=== PATIENT | male | born 1965 | race African-American/Black ===

== ENCOUNTER 2024-12-27 19:53 | Inpatient (IN) | payer OTHER ==
[~2024-12-27] VITALS: Ht 180.3 cm; Wt 136.0 kg
[~2024-12-27 19:53] MED LIST: ACYC1TAB
--- NOTE | 2024-12-27 20:21 | ED.PDOC ---
History of present illness HPI Comments 59 year old male came to ER via EMS due to hyperglycemia. Patient has history of hypertension and dyslipidemia. For the past few weeks, he has been feeling generally weak, with episodes of polyuria and polydipsia. Patient has been taking Epson salts for it. He then started feeling progressively weak with weakn ess/ numbness of right upper extremity with dizziness and lightheadedness. Blood sugar taken read "high" Chief Complaint: Hyperglycemia Time Seen by MD: 20:20 Primary Care Provider: none History of present illness: Nurses Notes Allergies: Coded Allergies: NO KNOWN ALLERGIES (Unverified , 11/30/11) Home Meds Reported Medications Acyclovir (Zovirax) 400 Mg Tb 12/18/11 Information Source: Patient Mode of Arrival: EMS Timing: Hours Duration: Since onset Prehospital treatment: None Guild: Shaky, Sweaty Symptoms: Anxious, Shaky, Sweaty Associated signs and symptoms: Other (weakness) Past Medical History PAST MEDICAL HISTORY: High Lipids, HTN Surgical History: Denies all surgeries Family History Family History: Reviewed,noncontributory to illness Social History Smoker: Non-Smoker Alcohol: Occasionally Drugs: Denies Drug Use Lives In: Home Constitutional: reports: fatigue, weakness; denies: chills, diaphoresis, fever, malaise, sweats, others EENTM: denies: blurred vision, double vision, ear bleeding, ear discharge, ear drainage, ear pain, ear ringing, eye pain, eye redness, hearing loss, mouth pain, mouth swelling, nasal discharge, nose bleeding, nose congestion, nose pain, photophobia, tearing, throat pain, throat swelling, voice changes, others Respiratory: denies: cough, hemoptysis, orthopnea, SOB at rest, shortness of breath, SOB with excertion, stridor, wheezing, others Cardiovascular: denies: chest pain, dizzy spells, diaphoresis, Dyspnea on exertion, edema, irregular heart beat, left arm pain, lightheadedness, palpitat ions, PND, syncope, others Gastrointestinal: denies: abdomen distended, abdominal pain, blood streaked bow els, constipated, diarrhea, dysphagia, difficulty swallowing, hematemesis, melena, nausea, poor appetite, poor fluid intake, rectal bleeding, rectal pain, vomiting, others Genitourinary: denies: burning, dysuria, flank pain, frequency, hematuria, incontinence, penile discharge, penile sore, pain, testicle pain, testicle swelling, urgency, others Neurological: denies: dizziness, fainting, headache, left sided numbness, left sided weakness, numbness, paresthesia, pre-existing deficit, right sided numbness, right sided weakness, seizure, speech problems, tingling, tremors, weakness, others Musculoskeletal: denies: back pain, gout, joint pain, joint swelling, muscle pain, muscle stiffness, neck pain, others Integumetry: denies: bruises, change in color, change in hair/nails, dryness, laceration, lesions, lumps, rash, wounds, others Allergic/Immunocompromised: denies: Difficulty Healing, Frequent Infections, Hives, Itching, others Endocrine: reports: excessive thirst, excessive urination; denies: excessive hunger, excessive sweating, flushing, intolerance to cold, intolerance to heat, unexplained weight gain, unexplained weight loss, others Psychiatric: denies: anxiety, bipolar disorder, depression, hopeless, panic disorder, schizophrenia, sleepless, suicidal, others Physical Exam General Appearance: No Apparent Distress, Normal HEENT: Normal ENT Inspection, Pharynx Normal, TMs Normal Neck: Full Range of Motion, Non-Tender, Normal, Normal Inspection Respiratory: Chest Non-Tender, Lungs Clear, No Accessory Muscle Use, No Respiratory Distress, Normal Breath Sounds Cardiovascular: No Edema, No JVD, No Murmur, No Gallop, Normal Peripheral Pulses, Regular Rate/Rhythm Breast Exam: Deferred Gastrointestinal: No Organomegaly, Non Tender, No Pulsatile Mass, Normal Bowel Sounds, Soft Genitalia: Deferred Pelvic: Deferred Rectal: Deferred Extremities: No calf tenderness, Normal capillary refill, Normal inspection, Normal range of motion, Non-tender, No pedal edema Musculoskeletal : Apperance: Normal Neurologic: Alert, 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 Was a procedure done?: No Differential Diagnosis (DM) Differential Diagnosis: Dehydration, DKA, Electrolyte Abnormality, Hyperglycemia, UTI X-Ray, Labs, Meds, VS Vital Signs Date Time Temp Pulse Resp B/P (MAP) Pulse Ox O2 Delivery O2 Flow Rate FiO2 12/27/24 20:37 113 23 95 Room Air* 0 21 12/27/24 20:35 99.0 113 23 109/81 (90) 95 99.0 12/27/24 19:53 99.0 115 24 129/85 (100) 95 99.0 Lab Test 12/27/24 21:27 12/27/24 21:08 12/27/24 20:25 Range/Units Troponin I High Sensitivity 13 11 </=54 ng/L Urine Color Light-yellow Yellow Urine Clarity Clear Clear Urine pH 5.0 5.0-9.0 Urine Specific [place] 1.028 1.001-1.035 Urine Protein Negative Negative Urine Ketones 2+ H Negative Urine Blood Negative Negative /uL Urine Nitrite Negative Negative Urine Bilirubin Negative Negative Urine Urobilinogen Normal Negative mg/dL Urine Leukocyte Esterase Trace Negative /uL Urine RBC 2 0 - 3 /hpf Urine Microscopic WBC 40 H 0-3 /HPF Urine Squamous Epithelial Cells None seen <5 /hpf Urine Bacteria Few H None Seen /hpf Urine Glucose 4+ H Normal mg/dL White Blood Count 5.8 4.4-10.8 10^3/uL Red Blood Count 4.98 4.5-5.90 10^6/uL Hemoglobin 14.3 13.5-17.5 g/dL Hematocrit 43.1 41.0-53.0 % Mean Corpuscular Volume 86.5 80.0-100.0 fL Mean Corpuscular Hemoglobin 28.7 28.0-32.0 pg Mean Corpuscular Hemoglobin Concent 33.1 32.0-36.0 g/dL Red Cell Distribution Width 13.1 11.8-14.3 % Platelet Count 161 140-450 10^3/uL Mean Platelet Volume 9.6 6.9-10.8 fL Neutrophils (%) (Auto) 64.7 37.0-80.0 % Lymphocytes (%) (Auto) 24.1 10.0-50.0 % Monocytes (%) (Auto) 10.4 0.0-12.0 % Eosinophils (%) (Auto) 0.5 0.0-7.0 % Basophils (%) (Auto) 0.3 0.0-2.0 % Neutrophils # (Auto) 3.7 1.6-8.6 10 ^3/uL Lymphocytes # (Auto) 1.4 0.4-5.4 10 ^3/uL Monocytes # (Auto) 0.6 0-1.3 10 ^3/uL Eosinophils # (Auto) 0 0-0.8 10 ^3/uL Basophils # (Auto) 0 0-0.2 10 ^3/uL Nucleated Red Blood Cells 0.3 % Sodium Level 129 L 136-145 mmol/L Potassium Level 3.9 3.5-5.1 mmol/L Chloride Level 94 L 98-107 mmol/L Carbon Dioxide Level 21 20-31 mmol/L Anion Gap 14 5-15 Blood Urea Nitrogen 18 9-23 mg/dL Creatinine 1.74 H 0.700-1.30 mg/dL Glomerular Filtration Rate Calc 45 >90 mL/min BUN/Creatinine Ratio 10.3 10.0-20.0 Serum Glucose 718 *H 74-106 mg/dL Calcium Level 10.2 8.7-10.4 mg/dL Current Medications Medications (Trade) Dose Ordered Sig/[place] Route Start Time Stop Time Status Last Admin Sodium Chloride 2,000 ml @ 1,000 mls/hr Q2H ONCE IV 12/27/24 22:15 12/28/24 00:14 12/27/24 22:18 Ondansetron HCl (Zofran) 4 mg ONCE ONCE IV 12/27/24 22:15 12/27/24 22:16 DC 12/27/24 22:19 Insulin Human Regular (InsuLIN R) 10 units ONCE ONCE IV 12/27/24 22:15 12/27/24 22:16 DC 12/27/24 22:19 Potassium Chloride (Klor-Con Tablet) 40 meq ONCE ONCE PO 12/27/24 22:15 12/27/24 22:16 DC 12/27/24 22:20 CHEST RADIOGRAPH Indication: right arm weakness Technique: Single frontal view of the chest was obtained Comparison: None FINDINGS: Lines and Tubes: None Lungs: No focal consolidation. Pleura: No effusion. No pneumothorax. Cardiomediastinal contours: Unremarkable Bones: No acute osseous abnormality. IMPRESSION: 1. Poor inspiratory effort. EXAM: CT HEAD WITHOUT CONTRAST INDICATION: right arm weakness TECHNIQUE: CT of the head without intravenous contrast. Radiation Dose Information: CT Dose: CTDI volume is 62.04 mGy. Dose-length product is 1098.42 mGy*cm The dose indicators for CT are the volume Computed Tomography (CT) Dose Index (CTDIvol) and the Dose Length Product (DLP), and are measured in units of mGy and mGy-cm, respectively. These indicators are not patient dose, but values generated from the CT scanner acquisition factors. The report includes radiation exposure data for exposures received during this examination. COMPARISON: None FINDINGS: There is no evidence of acute intracranial hemorrhage, extra-axial collection, mass effect, midline shift, herniation or hydrocephalus. The ventricles, sulci and cisterns are age appropriate. The archuleta-white differentiation is intact. Patchy periventricular and subcortical white matter hypoattenuation is nonspecific but may be related to small vessel ischemic disease. The visualized paranasal sinuses and mastoid air cells are clear. The surrounding soft tissues and osseous structures are unremarkable. IMPRESSION: 1. No acute intracranial abnormality. Time of 1ST Reevaluation: 20:16 Reevaluation 1ST: Unchanged Patient Education/Counseling: Diagnosis, Treatment Family Education/Counseling: No Family Present Departure 1 Departure Time of Disposition: 22:48 (Patient with new onset diabetes. We will admit patient for further workup and expert consultation) Impression: Primary Impression: New onset type 2 diabetes mellitus Additional Impression: Generalized weakness Disposition: 09 ADMITTED INPATIENT Admit to: Med Surg Condition: Guarded Critical Care Note Critical Care Time?: Yes (35 min-critical care time only) Critical care comment: hyperglycemia Authorized and Performed by: Alanna Terrazas MD Total critical care time: Approximately 39 minutes Due to a high probability of clinically significant, life threatening deterioration, the patient required my highest level of preparedness to intervene emergently and I personally spent this critical care time directly and personally managing the patient. This critical care time included obtaining a history; examining the patient; pulse oximetry; ordering and review of studies; arranging urgent treatment with development of a management plan; evaluation of patient's response to treatment; frequent reassessment; and, discussions with other providers. This critical care time was performed to assess and manage the high probability of imminent, life-threatening deterioration that could result in multi-organ failure. It was exclusive of separately billable procedures and treating other patients and teaching time. Please see my other sections and the rest of the note for further information on patient assessment and treatment. Stability Stability form required: No Heart Score Heart Score: Heart Score Response (Comments) Value History N/A 0 EKG N/A 0 Age N/A 0 Risk Factors N/A 0 Troponin N/A 0 Total 0 I personally scribed for ALANNA TERRAZAS MD ([facility]) on 12/27/24 at 20:21. Electronically submitted by Donn Posadas ([facility]). I personally scribed for ALANNA TERRAZAS MD ([facility]) on 12/27/24 at 21:01. Electronically submitted by Donn Posadas ([facility]). I personally scribed for ALANNA TERRAZAS MD ([facility]) on 12/27/24 at 22:03. Electronically submitted by Donn Posadas ([facility]). ALANNA TERRAZAS MD December 27, 2024 20:21
[2024-12-27 20:36] LABS: Basophils # (auto) 0 10 ^3/uL (0-0.2); Basophils % (auto) 0.3 % (0.0-2.0); Eosinophils # (auto) 0 10 ^3/uL (0-0.8); Eosinophils % (auto) 0.5 % (0.0-7.0); Hematocrit 43.1 % (41.0-53.0); Hemoglobin 14.3 g/dL (13.5-17.5); Lymphocytes # (auto) 1.4 10 ^3/uL (0.4-5.4); Lymphocytes % (auto) 24.1 % (10.0-50.0); Mean Corpuscular Hemoglobin 28.7 pg (28.0-32.0); Mean Corpuscular Hgb Conc. 33.1 g/dL (32.0-36.0); Mean Corpuscular Volume 86.5 fL (80.0-100.0); Monocytes # (auto) 0.6 10 ^3/uL (0-1.3); Monocytes % (auto) 10.4 % (0.0-12.0); Neutrophils # (auto) 3.7 10 ^3/uL (1.6-8.6); Neutrophils % (auto) 64.7 % (37.0-80.0); Nucleated Red Blood Cells % 0.3 %; Platelet Count (auto) 161 10^3/uL (140-450); Red Blood Cells 4.98 10^6/uL (4.5-5.90); Red Cell Distribution Width 13.1 % (11.8-14.3); White Blood Cell 5.8 10^3/uL (4.4-10.8)
[2024-12-27 20:37] VITALS: PULSE 113; RESP 23; O2SAT 95
[2024-12-27 20:44] LABS: Potassium 3.9 mmol/L (3.5-5.1)
[2024-12-27 20:46] LABS: Anion Gap 14 (5-15); Calcium 10.2 mg/dL (8.7-10.4); Carbon Dioxide 21 mmol/L (20-31)
--- NOTE | 2024-12-27 20:46 | DVH ---
CHEST RADIOGRAPH Indication: right arm weakness Technique: Single frontal view of the chest was obtained Comparison: None FINDINGS: Lines and Tubes: None Lungs: No focal consolidation. Pleura: No effusion. No pneumothorax. Cardiomediastinal contours: Unremarkable Bones: No acute osseous abnormality. IMPRESSION: 1. Poor inspiratory effort.
[2024-12-27 20:49] LABS: Chloride 94 mmol/L (98-107); Sodium 129 mmol/L (136-145)
[2024-12-27 20:51] LABS: BUN/Creatinine Ratio 10.3 (10.0-20.0); Blood Urea Nitrogen 18 mg/dL (9-23)
[2024-12-27 21:01] LABS: Glucose 718 mg/dL (74-106)
[2024-12-27 21:25] LABS: Urine Bacteria FEW /hpf (None Seen); Urine Blood Negative /uL (Negative); Urine Clarity Clear (Clear); Urine Color Light-Yellow (Yellow); Urine Protein, UAD Negative (Negative); Urine Specific Gravity 1.028 (1.001-1.035); Urine Squamous Epithelial Cell None Seen /hpf (<5); Urine Urobilinogen Normal (Negative); Urine WBC 40 /HPF (0-3)
--- NOTE | 2024-12-27 21:32 | DVH ---
EXAM: CT HEAD WITHOUT CONTRAST INDICATION: right arm weakness TECHNIQUE: CT of the head without intravenous contrast. Radiation Dose Information: CT Dose: CTDI volume is 62.04 mGy. Dose-length product is 1098.42 mGy*cm The dose indicators for CT are the volume Computed Tomography (CT) Dose Index (CTDIvol) and the Dose Length Product (DLP), and are measured in units of mGy and mGy-cm, respectively. These indicators are not patient dose, but values generated from the CT scanner acquisition factors. The report includes radiation exposure data for exposures received during this examination. COMPARISON: None FINDINGS: There is no evidence of acute intracranial hemorrhage, extra-axial collection, mass effect, midline s hift, herniation or hydrocephalus. The ventricles, sulci and cisterns are age appropriate. The archuleta-white differentiation is intact. Patchy periventricular and subcortical white matter hypoattenuation is nonspecific but may be related to small vessel ischemic disease. The visualized paranasal sinuses and mastoid air cells are clear. The surrounding soft tissues and osseous structures are unremarkable. IMPRESSION: 1. No acute intracranial abnormality.
[2024-12-27] MEDS: SODIUM CHLORIDE 0.9% 2,000 ML IV ONE (22:18)
[2024-12-27] MEDS: InsuLIN REG 1unit/0.01ml Soln (100units/ml) IV ONE (22:19)
[2024-12-27] MEDS: ONDANSETRON HCL 4 MG/2 ML VIAL IV ONE (22:19)
[2024-12-27] MEDS: POTASSIUM CHL 20 Meq TABLET PO ONE (22:20)
[2024-12-28] MEDS ORDERED: DEXTROSE (50%) 50ML SYRG IV PRN (00:30)
[2024-12-28] MEDS ORDERED: hydrALAZINE HCL 20 MG/ML VL IV PRN (00:30)
[2024-12-28] MEDS ORDERED: ACETAMINOPHEN 325 MG TAB PO PRN (00:30)
[2024-12-28] MEDS ORDERED: HYDROcodone-ACET 5/325MG TAB PO PRN (00:30)
[2024-12-28] MEDS ORDERED: ONDANSETRON HCL 4 MG/2 ML VIAL IV PRN (00:30)
[2024-12-28] MEDS ORDERED: DOCUSATE SOD 100 MG CAP PO PRN (00:30)
[2024-12-28] MEDS: SODIUM CHLORIDE 0.9% 1,000 ML IV SCH ×2 (00:46→18:32)
[2024-12-28] MEDS: ACCU-CHEK COMFORT CURVE STRIP VI SCH (04:15)
[2024-12-28 04:16] LABS: Basophils # (auto) 0 10 ^3/uL (0-0.2); Basophils % (auto) 0.4 % (0.0-2.0); Eosinophils # (auto) 0.1 10 ^3/uL (0-0.8); Eosinophils % (auto) 1.4 % (0.0-7.0); Hematocrit 40.8 % (41.0-53.0); Hemoglobin 13.6 g/dL (13.5-17.5); Lymphocytes # (auto) 1.7 10 ^3/uL (0.4-5.4); Mean Corpuscular Hemoglobin 28.9 pg (28.0-32.0); Mean Corpuscular Hgb Conc. 33.3 g/dL (32.0-36.0); Mean Corpuscular Volume 86.8 fL (80.0-100.0); Monocytes # (auto) 0.5 10 ^3/uL (0-1.3); Monocytes % (auto) 8.4 % (0.0-12.0); Neutrophils # (auto) 3.2 10 ^3/uL (1.6-8.6); Neutrophils % (auto) 58.8 % (37.0-80.0); Nucleated Red Blood Cells % 0.4 %; Platelet Count (auto) 159 10^3/uL (140-450); Red Cell Distribution Width 12.9 % (11.8-14.3); White Blood Cell 5.5 10^3/uL (4.4-10.8)
[2024-12-28] MEDS: InsuLIN REG 1unit/0.01ml Soln (100units/ml) SC SCH (04:19)
[2024-12-28 04:31] LABS: Alanine Aminotransferase 12 U/L (7-40); Albumin 3.8 g/dL (3.2-4.8); Anion Gap 14 (5-15); Aspartate Aminotransferase 13 U/L (13-40); BUN/Creatinine Ratio 12.2 (10.0-20.0); Bilirubin, Total 0.5 mg/dL (0.2-1.0); Blood Urea Nitrogen 15 mg/dL (9-23); Calcium 9.1 mg/dL (8.7-10.4); Carbon Dioxide 22 mmol/L (20-31); Chloride 99 mmol/L (98-107); Potassium 4.2 mmol/L (3.5-5.1)
[2024-12-28 04:38] LABS: Alkaline Phosphatase 126 U/L (46-116); Sodium 135 mmol/L (136-145)
[2024-12-28 04:40] LABS: Glucose 437 mg/dL (74-106)
--- NOTE | 2024-12-28 06:21 | DVHHP2 ---
History of Present Illness Reason for Visit: New onset type 2 diabetes mellitus History of Present Illness The patient is a 59-year-old male with past medical history of hyperlipidemia and hypertension who presented to [facility] ED with complaint of elevated blood sugar. Patient reports for the past 2 weeks has been feeling generalized weakness, with episodes of polyuria and polydipsia, dizziness, lightheadedness, progressively get worse today that prompted this visit. Patient was seen and evaluated in the ED with initial blood sugar taking reads with high, laboratory data shows WBC 5.8, platelets 161, sodium 129, potassium 3.9, BUN 18, creatinine 1.74, glucose 718, troponin 12, blood pressure 109/81, heart rate 104, temperature 99.0 F, O2 saturation 95% on room air. Patient was given regular insulin 10 units IV x1, please see medication orders section in the computer. On my assessment, patient denied chest pain, no headache, no dizziness, no diaphoresis, no shortness of breath, no diarrhea, no nausea, no vomiting, no fever, no chills. Patient was admitted for further evaluation and medical management. Past Medical History High Lipids, HTN Past Surgical History Denies all surgeries Family History Reviewed, noncontributory to the management of this case. Past Social History The patient lives at home, denies smoking, alcohol or illicit drugs abuse. Review of Systems Constitutional: Yes: Weakness, Other (Fatigue); No: Fever, Chills, Sweats, Malaise Eyes: No: Pain, Vision change, Conjunctivae inflammation, Eyelid inflammation, Other, Redness ENT: No: Ear pain, Ear discharge, Nose pain, Nose discharge, Nose congestion, Mouth pain, Mouth swelling, Throat pain, Throat swelling, Other Respiratory: No: Cough, Dry, Shortness of breath, SOB with excertion, Wheezing, Hemoptysis, Pleuritic Pain, Sputum, Wheezing, Other Cardiovascular: Lt Headedness; No: Chest Pain, Palpitations, Orthopnea, Paroxysmal Noc. Dyspnea, Edema, Other Gastrointestinal: Nausea; No: Vomiting, Abdominal Pain, Diarrhea, Constipation, Melena, Hematochezia, Other Genitourinary: No Dysuria, No Frequency, No Incontinence, No Hematuria, No Retention, No Other Musculoskeletal: No: other, neck pain, shoulder pain, arm pain, back pain, hand pain, leg pain, foot pain Skin: No: Rash, Lesions, Jaundice, Bruising, Other Neurological: No: Weakness, Numbness, Incoordination, Change in speech, Confusi on, Seizures, Other Other reports: excessive thirst, excessive urination; denies: excessive hunger, excessive sweating, flushing, intolerance to cold, intolerance to heat, unexplained weight gain, unexplained weight loss, others Allergies: Coded Allergies: NO KNOWN ALLERGIES (Unverified , 11/30/11) Medications Current Medications Medications Dose Ordered Sig/[place] Route Start Time Stop Time Status Last Admin Dose Admin Hydralazine HCl 10 mg Q6HP PRN IV 12/28/24 00:30 Atorvastatin Calcium 20 mg HS PO 12/28/24 22:00 Diagnostic Test (Pha) 1 strip IQ4HR 12/28/24 04:00 12/28/24 04:15 1 STRIP Insulin Human Regular IQ4HR SC 12/28/24 04:00 12/28/24 04:19 20 UNITS Dextrose 50 ml UD PRN IV 12/28/24 00:30 Sodium Chloride 1,000 ml @ 120 mls/hr Q8H20M IV 12/28/24 00:30 12/28/24 00:46 120 MLS/HR Acetaminophen/ Hydrocodone Bitart 1 tab Q4HP PRN PO 12/28/24 00:30 Ondansetron HCl 4 mg Q4HP PRN IV 12/28/24 00:30 Docusate Sodium 100 mg BIDPRN PRN PO 12/28/24 00:30 Acetaminophen 650 mg Q6HP PRN PO 12/28/24 00:30 Exam Vital Signs Vital Signs Date Time Temp Pulse Resp B/P (MAP) Pulse Ox O2 Delivery O2 Flow Rate FiO2 12/28/24 06:00 82 12/28/24 06:00 8 132/86 (101) 95 12/27/24 20:37 Room Air* 0 21 12/27/24 20:35 99.0 99.0 General Appearance: Alert, Oriented X3, Cooperative, No acute distress HEENT: Atraumatic, PERRLA, EOMI, Mucous membr. moist/pink Respiratory: Clear to auscultation, Normal air movement Cardiovascular: Regular rate, Normal S1, Normal S2, No murmurs Abdominal: Normal bowel sounds, Soft, No tenderness, No hepatospenomegaly, No masses Extremities: No clubbing, No cyanosis, No edema, Normal pulses, No tenderness/swelling Skin: No rashes, No breakdown, No significant lesion Neuro: Normal speech, Normal tone, Sensation intact, Cranial nerves 3-12 NL, Reflexes 2+, Other (Generalized weakness) Psych/Mental Status: Mental status NL, Mood NL Labs/Xrays Labs Test 12/28/24 04:48 12/28/24 03:51 12/27/24 23:10 12/27/24 21:08 Range/Units POC Glucose 437 *H 70-106 mg/dl White Blood Count 5.5 4.4-10.8 10^3/uL Red Blood Count 4.70 4.5-5.90 10^6/uL Hemoglobin 13.6 13.5-17.5 g/dL Hematocrit 40.8 L 41.0-53.0 % Mean Corpuscular Volume 86.8 80.0-100.0 fL Mean Corpuscular Hemoglobin 28.9 28.0-32.0 pg Mean Corpuscular Hemoglobin Concent 33.3 32.0-36.0 g/dL Red Cell Distribution Width 12.9 11.8-14.3 % Platelet Count 159 140-450 10^3/uL Mean Platelet Volume 9.5 6.9-10.8 fL Neutrophils (%) (Auto) 58.8 37.0-80.0 % Lymphocytes (%) (Auto) 31.0 10.0-50.0 % Monocytes (%) (Auto) 8.4 0.0-12.0 % Eosinophils (%) (Auto) 1.4 0.0-7.0 % Basophils (%) (Auto) 0.4 0.0-2.0 % Neutrophils # (Auto) 3.2 1.6-8.6 10 ^3/uL Lymphocytes # (Auto) 1.7 0.4-5.4 10 ^3/uL Monocytes # (Auto) 0.5 0-1.3 10 ^3/uL Eosinophils # (Auto) 0.1 0-0.8 10 ^3/uL Basophils # (Auto) 0 0-0.2 10 ^3/uL Nucleated Red Blood Cells 0.4 % Sodium Level 135 #L 136-145 mmol/L Potassium Level 4.2 3.5-5.1 mmol/L Chloride Level 99 98-107 mmol/L Carbon Dioxide Level 22 20-31 mmol/L Anion Gap 14 5-15 Blood Urea Nitrogen 15 9-23 mg/dL Creatinine 1.23 0.700-1.30 mg/dL Glomerular Filtration Rate Calc 68 >90 mL/min BUN/Creatinine Ratio 12.2 10.0-20.0 Serum Glucose 437 #*H 74-106 mg/dL Calcium Level 9.1 8.7-10.4 mg/dL Total Bilirubin 0.5 0.2-1.0 mg/dL Aspartate Amino Transferase (AST) 13 13-40 U/L Alanine Aminotransferase (ALT) 12 7-40 U/L Alkaline Phosphatase 126 H 46-116 U/L Total Protein 7.0 5.7-8.2 g/dL Albumin 3.8 3.2-4.8 g/dL Troponin I High Sensitivity 12 </=54 ng/L Urine Color Light-yellow Yellow Urine Clarity Clear Clear Urine pH 5.0 5.0-9.0 Urine Specific [place] 1.028 1.001-1.035 Urine Protein Negative Negative Urine Ketones 2+ H Negative Urine Blood Negative Negative /uL Urine Nitrite Negative Negative Urine Bilirubin Negative Negative Urine Urobilinogen Normal Negative mg/dL Urine Leukocyte Esterase Trace Negative /uL Urine RBC 2 0 - 3 /hpf Urine Microscopic WBC 40 H 0-3 /HPF Urine Squamous Epithelial Cells None seen <5 /hpf Urine Bacteria Few H None Seen /hpf Urine Glucose 4+ H Normal mg/dL Test 12/27/24 20:25 Range/Units Hemoglobin A1c > 14.0 H <5.7 % A1C PATIENT: DARON STARR ACCT: [id number] UNIT: [id number] : 1965 LOC: ER ROOM / BED: / AGE / SEX: 59 / M ADM STATUS: REG ER SERVICE 02 ORDERING PHYSICIAN: ALANNA ORTIZ MD PROCEDURE(s): HWOCT - HEAD WITHOUT CONTRAST REASON: right arm weakness ORDER NUMBER(s): [id number], ACCESSION NUMBER(s): [id number] EXAM: CT HEAD WITHOUT CONTRAST INDICATION: right arm weakness TECHNIQUE: CT of the head without intravenous contrast. Radiation Dose Information: CT Dose: CTDI volume is 62.04 mGy. Dose-length product is 1098.42 mGy*cm The dose indicators for CT are the volume Computed Tomography (CT) Dose Index (CTDIvol) and the Dose Length Product (DLP), and are measured in units of mGy and mGy-cm, respectively. These indicators are not patient dose, but values generated from the CT scanner acquisition factors. The report includes radiation exposure data for exposures received during this examination. COMPARISON: None FINDINGS: There is no evidence of acute intracranial hemorrhage, extra-axial collection, mass effect, midline shift, herniation or hydrocephalus. The ventricles, sulci and cisterns are age appropriate. The archuleta-white differentiation is intact. Patchy periventricular and subcortical white matter hypoattenuation is nonspecific but may be related to small vessel ischemic disease. The visualized paranasal sinuses and mastoid air cells are clear. The surrounding soft tissues and osseous structures are unremarkable. IMPRESSION: 1. No acute intracranial abnormality. ORDERING PHYSICIAN: ALANNA ORTIZ MD PROCEDURE(s): CXRP - CHEST PORTABLE REASON: right arm weakness ORDER NUMBER(s): [id number], ACCESSION NUMBER(s): [id number] CHEST RADIOGRAPH Indication: right arm weakness Technique: Single frontal view of the chest was obtained Comparison: None FINDINGS: Lines and Tubes: None Lungs: No focal consolidation. Pleura: No effusion. No pneumothorax. Cardiomediastinal contours: Unremarkable Bones: No acute osseous abnormality. IMPRESSION: 1. Poor inspiratory effort. Assessment/Plan Assessment/Plan New onset type 2 diabetes mellitus Acute renal injury Hyponatremia Generalized weakness Type 2 diabetes mellitus with hyperglycemia Plan 1. Admit to telemetry unit 2. Breathing treatment 3. Pain control management 4. Management of fluids and electrolytes 5. Consultation for hospitalist 6. Diagnostic tests chest x-ray 7. DVT prophylaxis-on aspirin 8. Repeat labs CBC, CMP in a.m. 9. Continue with current medical management 10. Treatment plan discussed with patient and RN. Patient verbalized understanding. Plan discussed with: Patient, Other (RN) My Orders Orders - ANGI YADAV DNP Procedure Category Date Status Time Consistent DIET 12/28/24 Transmitted Carb(Ccho)Diabetes Breakfast Hydralazine Injection PHA 12/28/24 In Process (Apresoline Inject 00:30 Atorvastatin (Lipitor) PHA 12/28/24 In Process 22:00 Glucose Blood PHA 12/28/24 In Process (Accu-Chek Comfort 04:00 Insulin R (Human) PHA 12/28/24 In Process (Insulin R) 04:00 Dextrose 50% Syringe PHA 12/28/24 In Process 00:30 Allergies SARAHI 12/28/24 In Process 00:18 Code Status CODE 12/28/24 Transmitted 00:18 Sodium Chloride 0.9% PHA 12/28/24 In Process 00:30 Oxygen Per Hour RT 12/28/24 Transmitted 00:18 Hydrocodone-Acet PHA 12/28/24 In Process 5/325mg Tab ([place] 00:30 Ondansetron Hcl PHA 12/28/24 In Process (Zofran) 00:30 Docusate Sodium PHA 12/28/24 In Process Capsule (Colace 00:30 Complete Blood Count LAB 12/29/24 Verified 04:00 Comprehensive LAB 12/29/24 Verified Metabolic Panel 04:00 Condition: Serious SARAHI 12/28/24 In Process 00:18 Acetaminophen Tablet PHA 12/28/24 In Process (Tylenol Tablet) 00:30 Bedrest With Bathroom SARAHI 12/28/24 In Process Privileg 00:18 Sequential SARAHI 12/28/24 In Process Compression Device * Dietary Consult CONS 12/28/24 Transmitted 00:55 Problem List: (1) New onset type 2 diabetes mellitus (2) Acute renal injury (3) Hyponatremia (4) Generalized weakness (5) Type 2 diabetes mellitus with hyperglycemia Date of Service: Dec 28, 2024 Billing Provider: ANGI YADAV DNP Common Visit Codes: [id number] INP/OBS CARE (HIGH) ANGI YADAV DNP Dec 28, 2024 06:21
[2024-12-28] MEDS ORDERED: MORPHINE SULFATE INJ 2 MG/ml SYRG IV PRN (06:30)
[2024-12-28] MEDS ORDERED: NITROGLYCERIN 0.4 MG SL TAB SL PRN (06:30)
--- NOTE | 2024-12-28 06:47 | ECG ---
[facility] Test Date: 2024-12-27 Test Time: 21:31:06 Pat Name: DARON STARR Department: ED Room: 0281T Gender: M [employer]: : 1965 Requested By: ALANNA ORTIZ Order Number: [id number] Reading MD: Hiram Parker Measurements Intervals [place] Rate: 105 P: 33 MT: 169 QRS: -42 QRSD: 96 T: 10 QT: 326 QTc: 431 Interpretive Statements Sinus tachycardia Multiple ventricular premature complexes Left anterior fascicular block Consider anterior infarct Electronically Signed On 12-28-2024 22:36:00 PDT by Hiram Parker Please click the below link to view image of tracing.
[2024-12-28 09:37] VITALS: BP 121/83; PULSE 94; RESP 16; TEMP 97.6; O2SAT 95
[2024-12-28] MEDS: ASPirin 81 mg TAB PO SCH (11:59)
[2024-12-28 14:00] VITALS: BP 115/81; PULSE 78; RESP 18; TEMP 97.9; O2SAT 95
--- NOTE | 2024-12-28 14:36 | DVHPN2 ---
Subjective Patient denies any symptoms at this time. Reports that his generalized weakness has improved. Reviewed: Care Plan, H&P, Labs, Medications Changes from previous H/P or p: No Changes General: Per HPI Eyes: No Pain, No Vision change, No Conjunctivae inflammation, No Eyelid inflammation, No Other, No Redness ENT: No Ear pain, No Ear discharge, No Nose pain, No Nose discharge, No Nose congestion, No Mouth pain, No Mouth swelling, No Throat pain, No Throat swelling, No Other Cardiovascular: No Chest Pain, No Palpitations, No Orthopnea, No Paroxysmal Noc. Dyspnea, No Edema; Lt Headedness; No Other Respiratory: No Cough, No Dry, No Shortness of breath, No SOB with excertion, No Wheezing, No Hemoptysis, No Pleuritic Pain, No Sputum, No Other Gastrointestinal: Nausea; No Vomiting, No Abdominal Pain, No Diarrhea, No Constipation, No Melena, No Hematochezia, No Other Genitourinary: No Dysuria, No Frequency, No Incontinence, No Hematuria, No Retention, No Other Musculoskeletal: No other, No neck pain, No shoulder pain, No arm pain, No back pain, No hand pain, No leg pain, No foot pain Skin: No Rash, No Lesions, No Jaundice, No Bruising, No Other Objective Vitals Vital Signs Date Time Temp Pulse Resp B/P (MAP) Pulse Ox O2 Delivery O2 Flow Rate FiO2 12/28/24 14:00 97.9 78 18 115/81 (92) 95 97.9 12/28/24 09:35 Room Air* 0 21 Intake/Output Intake and Output 12/28/24 07:00 Intake Total 2748 ml Balance 2748 ml Intake IV Total 2748 ml General Appearance: Alert, Oriented X3, Cooperative, No acute distress, Other (Obese) HEENT: Atraumatic, PERRLA Cardiovascular: Normal S1, Normal S2 Abdomen: Normal bowel sounds, Soft, No tenderness, No hepatospenomegaly Musculoskeletal: Normal sensory function, Normal motor function Skin: Dry, Intact Psych/Mental Status: Mental status NL, Mood NL Medications Current Medications Medications Dose Ordered Sig/[place] Route Start Time Stop Time Status Last Admin Dose Admin Hydralazine HCl 10 mg Q6HP PRN IV 12/28/24 00:30 Atorvastatin Calcium 20 mg HS PO 12/28/24 22:00 Diagnostic Test (Pha) 1 strip IQ4HR 12/28/24 04:00 12/28/24 11:59 1 STRIP Insulin Human Regular IQ4HR SC 12/28/24 04:00 12/28/24 12:01 20 UNITS Dextrose 50 ml UD PRN IV 12/28/24 00:30 Acetaminophen/ Hydrocodone Bitart 1 tab Q4HP PRN PO 12/28/24 00:30 Ondansetron HCl 4 mg Q4HP PRN IV 12/28/24 00:30 Docusate Sodium 100 mg BIDPRN PRN PO 12/28/24 00:30 Acetaminophen 650 mg Q6HP PRN PO 12/28/24 00:30 Nitroglycerin 0.4 mg Q5MINP PRN SL 12/28/24 06:30 Morphine Sulfate 2 mg Q30M PRN IV 12/28/24 06:30 Aspirin 81 mg DAILY PO 12/28/24 10:00 12/28/24 11:59 81 MG Sodium Chloride 1,000 ml @ 100 mls/hr Q10H IV 12/28/24 14:00 UNV Metformin HCl 500 mg BIDWM PO 12/28/24 18:00 UNV Laboratory Results Laboratory Tests 12/28/24 03:51 Chemistry Test 12/27/24 20:25 12/28/24 03:51 Calcium Level 10.2 mg/dL (8.7-10.4) 9.1 mg/dL (8.7-10.4) Albumin 3.8 g/dL (3.2-4.8) Total Protein 7.0 g/dL (5.7-8.2) LFT Test 12/28/24 03:51 Alanine Aminotransferase (ALT) 12 U/L (7-40) Alkaline Phosphatase 126 U/L (46-116) H Aspartate Amino Transferase (AST) 13 U/L (13-40) Total Bilirubin 0.5 mg/dL (0.2-1.0) HgA1c, TSH Test 12/27/24 20:25 Hemoglobin A1c > 14.0 % A1C (<5.7) H Urinalysis Test 12/27/24 21:08 Urine Color Light-yellow (Yellow) Urine Clarity Clear (Clear) Urine pH 5.0 (5.0-9.0) Urine Specific [place] 1.028 (1.001-1.035) Urine Protein Negative (Negative) Urine Ketones 2+ (Negative) H Urine Blood Negative /uL (Negative) Urine Nitrite Negative (Negative) Urine Bilirubin Negative (Negative) Urine Urobilinogen Normal mg/dL (Negative) Urine Leukocyte Esterase Trace /uL (Negative) Urine RBC 2 /hpf (0 - 3) Urine Microscopic WBC 40 /HPF (0-3) H Urine Squamous Epithelial Cells None seen /hpf (<5) Urine Bacteria Few /hpf (None Seen) H Urine Glucose 4+ mg/dL (Normal) H Labs and/or images reviewed: Labs reviewed by me, Image(s) reviewed by me Assessment/Plan Assessment/Plan Impression: -severe hyperglycemia with hyperosmolar state -new onset/new diagnosis of diabetes mellitus -obesity -acute kidney injury, vasomotor nephropathy -primary hypertension -dyslipidemia Plan: -continue IV hydration -check lipid panel -start metformin 500 mg p.o. b.i.d.. Continue regular insulin sliding scale -repeat labs in a.m. -diabetic education -reassess for discharge in a.m. Total time spent with patient discussing and formulating plan of care: 35 minutes. This medical document was created using an electronic medical record system with [employer] dictation system. Although this document has been carefully reviewed, there may still be some phonetic and typographical errors. These areas are purely typographical due to imperfections of the software programs, and do not reflect any compromise in the patient's medical care. Plan discussed with: Patient, Other (RN) My Orders Orders - GINA JOSE NP Procedure Category Date Status Time Sodium Chloride 0.9% PHA 12/28/24 Logged 14:00 *Rn Hemodialysis Technician REFER 12/28/24 Transmitted Referral 13:53 Metformin PHA 12/28/24 Logged Hydrochloride 18:00 Lipid Panel LAB 12/28/24 Verified 14:34 Date of Service: Dec 28, 2024 Billing Provider: GINA JOSE NP Common Visit Codes: [id number] INP/OBS CARE(HIGH) GINA JOSE NP Dec 28, 2024 14:36
[2024-12-28] MEDS ORDERED: METF-370 PO (14:38)
[2024-12-28] MEDS ORDERED: LANC-347 XX (14:38)
[2024-12-28] MEDS ORDERED: BLOO1KIT60 XX (14:38)
[2024-12-28 14:57] LABS: Cholesterol 124 mg/dL (< 200)
[2024-12-28 14:59] LABS: HDL Cholesterol 16 mg/dL (40-59); Triglycerides 428 mg/dL (< 150)
[2024-12-28 17:00] VITALS: BP 144/87; PULSE 72; RESP 18; TEMP 98; O2SAT 93
[2024-12-28] MEDS: metFORMIN HYDROCHLORIDE 500 MG TAB PO SCH (18:32)
[2024-12-28] MEDS ORDERED: AMLO1TAB22 PO (18:55)
[2024-12-28] MEDS ORDERED: FURO40TA4 PO (18:55)
[2024-12-28] MEDS ORDERED: ALLO300T2 PO (18:55)
[2024-12-28] MEDS ORDERED: BACL10TA PO (18:55)
[2024-12-28] MEDS ORDERED: ATOR20TA50 PO (18:55)
[2024-12-28 20:00] VITALS: PULSE 86
[2024-12-28 21:00] VITALS: BP 125/72; PULSE 86; RESP 19; TEMP 98.7; O2SAT 92
[2024-12-28] MEDS: ATORVASTATIN 20 MG TAB PO SCH (22:06)
[2024-12-29] VITALS (9 sets, daily range): BP systolic 104–138; BP diastolic 65–94; PULSE 75–103; RESP 18–20; TEMP 95–99.5; O2SAT 94–100
[2024-12-29 06:58] LABS: Basophils # (auto) 0 10 ^3/uL (0-0.2); Basophils % (auto) 0.2 % (0.0-2.0); Eosinophils # (auto) 0.1 10 ^3/uL (0-0.8); Eosinophils % (auto) 3.3 % (0.0-7.0); Hematocrit 38.7 % (41.0-53.0); Hemoglobin 13.2 g/dL (13.5-17.5); Lymphocytes # (auto) 1.3 10 ^3/uL (0.4-5.4); Lymphocytes % (auto) 33.6 % (10.0-50.0); Mean Corpuscular Hemoglobin 29.3 pg (28.0-32.0); Mean Corpuscular Hgb Conc. 34.2 g/dL (32.0-36.0); Mean Corpuscular Volume 85.9 fL (80.0-100.0); Monocytes # (auto) 0.3 10 ^3/uL (0-1.3); Monocytes % (auto) 8.1 % (0.0-12.0); Neutrophils # (auto) 2.2 10 ^3/uL (1.6-8.6); Neutrophils % (auto) 54.8 % (37.0-80.0); Nucleated Red Blood Cells % 0.2 %; Platelet Count (auto) 143 10^3/uL (140-450); Red Blood Cells 4.51 10^6/uL (4.5-5.90); Red Cell Distribution Width 12.9 % (11.8-14.3); White Blood Cell 3.9 10^3/uL (4.4-10.8)
[2024-12-29 07:21] LABS: Alanine Aminotransferase 22 U/L (7-40); Albumin 3.6 g/dL (3.2-4.8); Alkaline Phosphatase 106 U/L (46-116); Anion Gap 11 (5-15); Aspartate Aminotransferase 41 U/L (13-40); BUN/Creatinine Ratio 9.1 (10.0-20.0); Bilirubin, Total 0.6 mg/dL (0.2-1.0); Blood Urea Nitrogen 8 mg/dL (9-23); Calcium 8.7 mg/dL (8.7-10.4); Carbon Dioxide 24 mmol/L (20-31); Chloride 104 mmol/L (98-107); Glucose 220 mg/dL (74-106); Sodium 139 mmol/L (136-145); Total Protein 6.5 g/dL (5.7-8.2)
[2024-12-29] MEDS ORDERED: METF-929 PO (12:45)
[2024-12-29] MEDS: POTASSIUM EFFERVESENT TAB 25 MEQ PO ONE (13:02)
--- NOTE | 2024-12-29 13:42 | DVHDS2 ---
Discharge Summary Date of Admission Dec 28, 2024 at 06:20 Date of Discharge: Dec 29, 2024 Admitting Diagnosis New onset type 2 diabetes mellitus Labs/Diagnostic Data: Laboratory Results Test 12/29/24 11:34 12/29/24 05:35 12/28/24 03:51 12/27/24 23:10 POC Glucose 337 mg/dl (70-106) White Blood Count 3.9 10^3/uL (4.4-10.8) Red Blood Count 4.51 10^6/uL (4.5-5.90) Hemoglobin 13.2 g/dL (13.5-17.5) Hematocrit 38.7 % (41.0-53.0) Mean Corpuscular Volume 85.9 fL (80.0-100.0) Mean Corpuscular Hemoglobin 29.3 pg (28.0-32.0) Mean Corpuscular Hemoglobin Concent 34.2 g/dL (32.0-36.0) Red Cell Distribution Width 12.9 % (11.8-14.3) Platelet Count 143 10^3/uL (140-450) Mean Platelet Volume 9.8 fL (6.9-10.8) Neutrophils (%) (Auto) 54.8 % (37.0-80.0) Lymphocytes (%) (Auto) 33.6 % (10.0-50.0) Monocytes (%) (Auto) 8.1 % (0.0-12.0) Eosinophils (%) (Auto) 3.3 % (0.0-7.0) Basophils (%) (Auto) 0.2 % (0.0-2.0) Neutrophils # (Auto) 2.2 10 ^3/uL (1.6-8.6) Lymphocytes # (Auto) 1.3 10 ^3/uL (0.4-5.4) Monocytes # (Auto) 0.3 10 ^3/uL (0-1.3) Eosinophils # (Auto) 0.1 10 ^3/uL (0-0.8) Basophils # (Auto) 0 10 ^3/uL (0-0.2) Nucleated Red Blood Cells 0.2 % Sodium Level 139 mmol/L (136-145) Potassium Level 3.0 mmol/L (3.5-5.1) Chloride Level 104 mmol/L (98-107) Carbon Dioxide Level 24 mmol/L (20-31) Anion Gap 11 (5-15) Blood Urea Nitrogen 8 mg/dL (9-23) Creatinine 0.88 mg/dL (0.700-1.30) Glomerular Filtration Rate Calc 100 mL/min (>90) BUN/Creatinine Ratio 9.1 (10.0-20.0) Serum Glucose 220 mg/dL (74-106) Calcium Level 8.7 mg/dL (8.7-10.4) Total Bilirubin 0.6 mg/dL (0.2-1.0) Aspartate Amino Transferase (AST) 41 U/L (13-40) Alanine Aminotransferase (ALT) 22 U/L (7-40) Alkaline Phosphatase 106 U/L (46-116) Total Protein 6.5 g/dL (5.7-8.2) Albumin 3.6 g/dL (3.2-4.8) Triglycerides Level 428 mg/dL (< 150) Cholesterol Level 124 mg/dL (< 200) LDL Cholesterol mg/dL (< 100) HDL Cholesterol 16 mg/dL (40-59) Troponin I High Sensitivity 12 ng/L (</=54) Test 12/27/24 21:08 12/27/24 20:25 Urine Color Light-yellow (Yellow) Urine Clarity Clear (Clear) Urine pH 5.0 (5.0-9.0) Urine Specific [place] 1.028 (1.001-1.035) Urine Protein Negative (Negative) Urine Ketones 2+ (Negative) Urine Blood Negative /uL (Negative) Urine Nitrite Negative (Negative) Urine Bilirubin Negative (Negative) Urine Urobilinogen Normal mg/dL (Negative) Urine Leukocyte Esterase Trace /uL (Negative) Urine RBC 2 /hpf (0 - 3) Urine Microscopic WBC 40 /HPF (0-3) Urine Squamous Epithelial Cells None seen /hpf (<5) Urine Bacteria Few /hpf (None Seen) Urine Glucose 4+ mg/dL (Normal) Hemoglobin A1c > 14.0 % A1C (<5.7) Other Laboratory Tests 12/29/24 05:35 Brief Hx & Hospital Course: History of Present Illness The patient is a 59-year-old male with past medical history of hyperlipidemia and hypertension who presented to [facility] ED with complaint of elevated blood sugar. Patient reports for the past 2 weeks has been feeling generalized weakness, with episodes of polyuria and polydipsia, dizziness, lightheadedness, progressively get worse today that prompted this visit. Patient was seen and evaluated in the ED with initial blood sugar taking reads with high, laboratory data shows WBC 5.8, platelets 161, sodium 129, potassium 3.9, BUN 18, creatinine 1.74, glucose 718, troponin 12, blood pressure 109/81, heart rate 104, temperature 99.0 F, O2 saturation 95% on room air. Patient was given regular insulin 10 units IV x1, please see medication orders section in the computer. On my assessment, patient denied chest pain, no headache, no dizziness, no diaphoresis, no shortness of breath, no diarrhea, no nausea, no vomiting, no fever, no chills. Patient was admitted for further evaluation and medical management. Course of hospitalization: Patient was given aggressive IV hydration, electrolyte replete. Patient's BUN and creatinine improved. Patient was started on metformin 500 mg p.o. b.i.d. in addition to regular insulin sliding scale. Patient's blood sugars have improved dramatically. Patient's symptoms have resolved. Diabetic education was provided with the patient. Patient will be discharged home with metformin 1000 mg p.o. b.i.d. as well as glucometer and appropriate supplies. Patient will have electrolyte replete today prior to being discharged. He will follow up with the discharge Clinic in his PCP within 1-2 weeks Physical examination General: Alert and Oriented x3. No acute distress. Well-nourished. Obese Eyes: EOMI. Anicteric. HENT: Moist mucous membranes. Lungs: Clear to auscultation bilaterally. No accessory muscle use. Cardiovascular: Regular rate and rhythm. No murmur. No JVD. Abdomen: Soft, non-tender and non-distended. No palpable masses. Extremities: No edema. Non-tender. Skin: No rashes or lesions. Warm. Neurologic: No focal neurological deficits. CN II-XII grossly intact, but not individually tested. Psychiatric: Cooperative. Appropriate mood and affect. Total time spent with patient discussing and formulating plan of care: 35 minutes. This medical document was created using an electronic medical record system with [employer] system. Although this document has been carefully reviewed, there may still be some phonetic and typographical errors. These areas are purely typographical due to imperfections of the software programs, and do not reflect any compromise in the patient's medical care. Condition at Discharge: Fair Final Diagnosis/Problems List Hyperglycemia Secondary diagnosis: -severe hyperglycemia with hyperosmolar state -new onset/new diagnosis of diabetes mellitus -obesity -acute kidney injury, vasomotor nephropathy -primary hypertension -dyslipidemia Discharge Disposition: Home Discharge Instruct/Medications Diet: Consistent carbohydrate Activity: No Restrictions, As Tolerated Follow Up/Referral: Follow up with discharge Clinic in one week Follow up with PCP at earliest appointment available Medications: Metformin 1000 mg p.o. b.i.d. Blood sugars, check twice a day 36 Discharge Statement: "Patient was advised to return to the ER or call 911 if any headaches, dizziness, shortness of breath, chest pain, abdominal pain, bleeding, fevers, or worsening of medical condition. Patient was counseled about treatment plan, medications, possible side effects, patientverbalized understanding. All questions were answered to the best of my ability. This discharge took greater then 30 minutes in planning, reviewing documentation, counseling the patient, and discussing with other team members." ASSESSMENT ASSESSMENT Assessment Hyperglycemia Date of Service: Dec 29, 2024 Billing Provider: GINA JOSE NP Common Visit Codes: 36586-BJB/OBS DISCH DAY >30min GINA JOSE NP Dec 29, 2024 13:42
[2024-12-30 00:44] VITALS: BP 137/103; PULSE 75; RESP 20; TEMP 97.3; O2SAT 95
[2024-12-30 05:00] VITALS: BP 114/78; PULSE 87; RESP 19; TEMP 97.7; O2SAT 96
[2024-12-30 08:30] VITALS: PULSE 104
[2024-12-30 09:00] VITALS: BP 143/91; PULSE 81; RESP 19; TEMP 98.1; O2SAT 96
[2024-12-30] MEDS ORDERED: ATOR40TA52 PO (10:39)
[2024-12-30] MEDS: metFORMIN HYDROCHLORIDE 500 MG TAB PO ONE (12:26)
[2024-12-30 13:00] VITALS: BP 128/79; PULSE 99; RESP 19; TEMP 97.9; O2SAT 95
== END 2024-12-30 13:53 | disposition home or self-care (01) | DRG 637 ==
LOC: EDBD 19:53 → ER 19:53 → OVERFLOW 12-28 06:20 → TELE-WESTW 12-28 10:14
PROVIDERS: ADMIT Nurse Practitioner Acute Care; ATTEND Nurse Practitioner Acute Care
DX: E11.00 Type 2 diabetes mellitus with hyperosmolarity without nonketotic hyperglycemic-hyperosmolar coma (NKHHC) (principal); N17.0 Acute kidney failure with tubular necrosis; E87.1 Hypo-osmolality and hyponatremia; Z68.41 Body mass index [BMI] 40.0-44.9, adult; E78.1 Pure hyperglyceridemia; E11.65 Type 2 diabetes mellitus with hyperglycemia; I10 Essential (primary) hypertension; E66.9 Obesity, unspecified; Z79.4 Long term (current) use of insulin; Z79.84 Long term (current) use of oral hypoglycemic drugs
CPT/HCPCS: 36415; 70450; 71045; 80048; 80053; 80061; 81001; 82962; 83036; 84132; 84484; 85025; 93005; 99291; G0378; J1815; J2405